=== PATIENT | male | born 1990 | race Caucasian/White ===

== ENCOUNTER 2017-07-07 17:21 | Emergency (ER) | payer SELFPAY ==
--- NOTE | 2017-07-07 18:29 | EDM.PDOC ---
<Ervin Hendricksher - Last Filed: 07/07/17 21:32> ED HPI GENERAL MEDICAL PROBLEM - General Chief Complaint: General Stated Complaint: FLU SYMPTOMS Time Seen by Provider: 07/07/17 18:07 - Related Data Allergies Allergy/AdvReac Type Severity Reaction Status Date / Time No Known Allergies Allergy Verified 07/07/17 18:00 Home Meds: Home Meds Insulin Detemir [Levemir Flextouch] 26 unit SQ DAILY 07/07/17 [History] metFORMIN HCl [Metformin HCl] 1,000 mg PO BID 07/07/17 [History] Course - Vital Signs Last Recorded V/S: Last Vital Signs Temp 97.8 F 07/07/17 17:58 Pulse 93 07/07/17 17:58 Resp 18 07/07/17 19:30 BP 140/89 07/07/17 19:30 Pulse Ox 98 07/07/17 19:30 - Orders/Labs/Meds Orders: Active Orders 24 hr Category Date Time Status POC Glucose [Blood Glucose Check, Bedside] [RC] ONETIME Care 07/07/17 18:25 Active Labs: Laboratory Tests 07/07/17 Range/Units 19:04 POC Glucose 393 H (60-110) mg/dL Departure - Departure Time of Disposition: 19:12 Disposition: Home, Self-Care 01 Condition: Good Clinical Impression: Viral illness - Discharge Information Instructions: Viral Respiratory Infection, [id number] Referrals: PCP,None [Primary Care Provider] - Adalberto Velazco MD [Resident] - Forms: ED Department Discharge - My Orders Last 24 Hours: My Active Orders 07/07/17 18:25 POC Glucose [Blood Glucose Check, Bedside] [RC] ONETIME - Assessment/Plan Last 24 Hours: My Active Orders 07/07/17 18:25 POC Glucose [Blood Glucose Check, Bedside] [RC] ONETIME <Nikky Carty - Last Filed: 07/08/17 14:19> ED HPI GENERAL MEDICAL PROBLEM - General Source of Information: Reports: Patient History Limitations: Reports: No Limitations - History of Present Illness INITIAL COMMENTS - FREE TEXT/NARRATIVE: History of present illness: []Patient's insulin-dependent diabetic is been sick since [place] with cold symptoms and has not taken and any insulin for the last month. Yesterday he got worse and had to leave work. He vomited 3 times and had diarrhea. Patient did not have a flu shot patient. Patient does not check his glucose. Review of systems: As per history of present illness and below otherwise all systems reviewed and negative. Past medical history: As per history of present illness and as reviewed below otherwise noncontributory. Surgical history: As per history of present illness and as reviewed below otherwise noncontributory. Social history: No reported history of drug or alcohol abuse. Family history: As per history of present illness and as reviewed below otherwise noncontributory. Physical exam: General: Well developed, well nourished in NAD HEENT: Atraumatic, normocephalic, pupils reactive, negative for conjunctival pallor or scleral icterus, mucous membranes moist, throat clear, neck supple, nontender, trachea midline. Lungs: Clear to auscultation, breath sounds equal bilaterally, chest nontender. Heart: S1S2, regular, negative for clicks, rubs, or JVD. Abdomen: Soft, nondistended, nontender. Negative for masses or hepatosplenomegaly. Negative for costovertebral tenderness. Pelvis: Stable nontender. Genitourinary: Deferred. Rectal: Deferred. Extremities: Atraumatic, negative for cords or calf pain. Neurovascular unremarkable. Neuro: Awake, alert, oriented. Cranial nerves II through XII unremarkable. Cerebellum unremarkable. Motor and sensory unremarkable throughout. Exam nonfocal. Diagnostics: [][id number] glucose 393, patient refused labs and IV fluids and wanted to go home patient requested a work note. Therapeutics: []Patient has insulin at home he just ran out of needles I informed him that the needles are [id number] after calling [facility] to confirm this. I also told him that they stated that they had samples they could give him if needed. Impression: []Uncontrolled diabetes Plan: []Follow-up with primary care Definitive disposition and diagnosis as appropriate pending reevaluation and review of above. Past Medical History Endocrine/Metabolic History: Reports: Diabetes, Type II - Infectious Disease History Infectious Disease History: Reports: Chicken Pox Social & Family History - Tobacco Use Smoking Status *Q: Current Every Day Smoker Years of Tobacco use: 8 Packs/Tins Daily: 1 - Caffeine Use Caffeine Use: Reports: Soda - Recreational Drug Use Recreational Drug Use: No ED ROS GENERAL - Review of Systems Review Of Systems: See Below (See history of present illness) ED EXAM, GENERAL - Physical Exam Exam: See Below (See history of present illness) Course - Orders/Labs/Meds Orders: Active Orders 24 hr Category Date Time Status POC Glucose [Blood Glucose Check, Bedside] [RC] ONETIME Care 07/07/17 18:25 Active Labs: Laboratory Tests 07/07/17 Range/Units 19:04 POC Glucose 393 H (60-110) mg/dL - My Orders Last 24 Hours: My Active Orders 07/07/17 18:25 POC Glucose [Blood Glucose Check, Bedside] [RC] ONETIME - Assessment/Plan Last 24 Hours: My Active Orders 07/07/17 18:25 POC Glucose [Blood Glucose Check, Bedside] [RC] ONETIME
== END 2017-07-07 19:30 | disposition home or self-care (01) ==
LOC: MW.ED 17:21
DX: B34.9 Viral infection, unspecified (principal); E11.65 Type 2 diabetes mellitus with hyperglycemia; Z79.4 Long term (current) use of insulin
CPT/HCPCS: 82962; 99283